=== PATIENT | female | born 1955 | race Caucasian/White ===

== ENCOUNTER 2019-12-11 12:40 | Emergency (ER) | payer BC, SELFPAY ==
[2019-12-11 12:40] VITALS: BP 200/119; PULSE 89; RESP 16; TEMP 36.4; O2SAT 98; BMI 37.8
--- NOTE | 2019-12-11 13:03 | EKG12_ITS ---
Test Reason : ABNLPAIN Blood Pressure : / mmHG Vent. Rate : 080 BPM Atrial Rate : 080 BPM P-R Int : 142 ms QRS Dur : 084 ms QT Int : 366 ms P-R-T Axes : 060 -15 037 degrees QTc Int : 422 ms Sinus rhythm with marked sinus arrhythmia Otherwise normal ECG Confirmed by MERY JOHNSON ([id number]), development editor JONAH VASQUES ([id number]) on 12/16/2019 1:22:41 PM Referred By: SHELL Confirmed By:MERY JOHNSON
--- NOTE | 2019-12-11 13:04 | CT_ITS ---
STUDY: CT ABDOMEN AND PELVIS WITHOUT CONTRAST REASON FOR EXAM: Female, 64 years old. LT FLANK PAIN. No hx cancer,diabetes or HTN RADIATION DOSAGE (If Supplied By Facility): CTDIvol = ( 19.40 ) mGy, DLP = ( 950.08 ) mGycm TECHNIQUE: Transaxial images were obtained from the dome of the diaphragm to the symphysis pubis without oral contrast, and without intravenous contrast. Sagittal and coronal images were reconstructed. Individualized dose optimization techniques were used for this CT. COMPARISON: None. FINDINGS: Minimal increased linear markings in the medial aspect of the right middle lobe as well as the lingular segment of the left upper lobe suggestive of mild scarring. The visualized portions of the heart are within normal limits. Normal liver. Normal gallbladder and extrahepatic biliary system. Normal spleen. Normal pancreas. Normal bilateral adrenal glands. Normal right kidney. There is engorgement of the left kidney with a mild degree of left perinephric stranding. Mild degree of left hydronephrosis and left hydroureter due to a 3 mm calculus at the left ureteropelvic junction as it enters the urinary bladder. There is a small hiatal hernia. Normal small intestine. There are multiple colonic diverticula consistent with diverticulosis. The appendix is visualized and appears normal. There is diffuse atherosclerotic calcification of the abdominal aorta, without a demonstrated aneurysm. Normal inferior vena cava. Normal retroperitoneum. Normal urinary bladder. Normal abdominal wall. There are degenerative changes of the visualized lumbar spine. CT/Abdomen/Pelvis without Cont IMPRESSION: Mild left hydronephrosis nodule or due to a 3 mm calculus at the left ureterovesical junction as it enters the urinary bladder. Left perinephric and periureteric stranding. Electronically Signed: Chandu Salinas, at 14:32 EDT , Service support ,
--- NOTE | 2019-12-11 13:05 | ED.DCSUM_ITS ---
- ER Visit Summary Date of Service: 12/11/19 Chief Complaint: Flank pain and a secondary complaint of chest pain History of Present Illness: The patient is a 64 F history of high cholesterol, back pain and rosacea. Patient states that today around 1030 had sudden onset left flank pain associated with nausea and diaphoresis. She is never had a kidney stone before. She did not vomit. She denies any dysuria or hematuria. She is never had pain like this before. She also states recently last several months she has had intermittent midsternal chest pain. At times associated with exertion. She had a cardiac work-up 10 years ago which had a negative stress test at that time. She does occasionally smoke about 2 cigarettes a day. She has no known cardiac history. She is never had a DVT or PE. Currently she is not having chest pain. Physical Examination: Older female no acute distress vital signs stable afebrile. Initial blood pressure elevated 200/119. Pulse ox 98% on room air no signs of hypoxia. H EENT exam unremarkable. Neck nontender. Lungs clear to auscultation bilaterally. Heart regular rhythm no murmur. Abdomen soft nontender. Normal bowel sounds no peritoneal signs. Extremities moves all 4. Calves are nontender without edema or cords. Neurologically she is awake alert with no focal motor deficits. Chest wall is nontender. Test Results: Portable 1 view chest no acute abnormality. CT flank study without contrast shows a 3 mm calculus with hydroureter and stranding. EKG normal sinus rhythm rate of 80 with no acute signs of AL or ischemia. CBC normal white count 8. Hemoglobin 13. Chemistries normal normal creatinine gap. UA normal no blood or infection. Troponin normal at less than 0.015 Emergency Department Course and Treatment: Patient's left flank pain sound like possibly a kidney stone. She will receive screening labs, urinalysis and a CAT scan of the abdomen pelvis without contrast. Chest pain she will undergo cardiac work-up for she. Exam currently is benign. There is no reproducible abdominal or chest pain. [facility] patient is doing well at 1455. She will be treated with morphine and Zofran for her flank pain and kidney stone. She will be discharged home with [place] for pain. Strainer for urine. Outpatient follow-up. I did speak to her primary care physician Dr. Gudino about getting her set up as soon as possible for an outpatient stress test. Patient and I discussed admission for this and she preferred not to stay due to the current pandemic. Treatment Plan: Work-up for pain. Strain urine. Follow-up with her PCP for an outpatient stress test. Aspirin daily. Return if worse pain. Disposition: discharge Impression: Acute left flank pain secondary to a 3 mm left UVJ kidney stone Acute chest pain of uncertain etiology This note was generated with [employer] dictation software. It may contain incorrect words, spelling, and punctuation that were not noted in review of the chart prior to signing ED Disposition - Plan for ED Patient: Referrals: Rene Gudino MD [Primary Care Provider] -
[2019-12-11 13:34] VITALS: O2SAT 98
[2019-12-11 13:36] LABS: Absolute Neutrophil Count 7.3 X10^3/uL (2.0-7.7); Basophil# 0.02 X10^3/uL; Basophil% 0.2 % (0-1); Eosinophil# 0.03 X10^3/uL; Eosinophils% 0.3 % (0-5); Hematocrit 41.7 % (37-47); Hemoglobin 13.9 g/dL (12.0-15.0); Lymphocyte % 11.4 % (19-41); Mean Corp Hgb Conc 33.3 g/dL (32-36); Mean Corpuscular Hgb 29.3 pg (27.0-32.0); Mean Corpuscular Volume 87.8 fL (81-99); Mean Platelet Vol. 11.1 fl (6.2-12.0); Monocyte# 0.47 X10^3/uL; Monocyte% 5.3 % (0-10); NRBC Flagged by Analyzer 0 % (0-5); Neutrophil # 7.27 X10^3/uL (2.7-7.7); Neutrophil % 82.7 % (47-70); Platelet Count 178 K/mm3 (150-450); RBC Distribution Width CV 12.7 % (11.6-14.6); RBC Distribution Width SD 41.1 fl (35.1-43.9); Red Blood Count 4.75 M/mm3 (4.2-5.4); White Blood Count 8.8 K/mm3 (4.4-11.0)
[2019-12-11 13:54] LABS: Anion Gap 5 (5-15); BUN 21 mg/dL (7-18); BUN/Creat Ratio 21.7 RATIO (10-20); Chloride 107 mmol/L (98-107); Creatinine, Serum 0.97 mg/dL (0.55-1.02); EST Glomerular Filtration Rate 62 mL/min (>60); Est Glom Filt Rate - Afr Amer 75 mL/min (>60); Estimated Creatinine Clearance 51.26 ml/min; Glucose 96 mg/dL (74-106); Potassium 4.4 mmol/L (3.5-5.1); Sodium Level 140 mmol/L (136-145)
[2019-12-11 13:58] LABS: Bacteria 0 SEEN /hpf (None Seen); Mucous, Urine 0 SEEN /hpf (<or=2+)
--- NOTE | 2019-12-11 14:00 | RAD_ITS ---
STUDY: X-RAY CHEST REASON FOR EXAM: Female, 64 years old. LEFT SIDED ABD AND FLANK PAIN, NAUSEA -- LATER STATES SHE HAS HAD INTERMITTENT CHEST PAIN, NONE TODAY- MAY BE ANXIETY. TECHNIQUE: Single AP portable view of the chest. COMPARISON: None. FINDINGS: The lungs are clear and expanded. There is no demonstrated pleural abnormality. Normal size heart. Normal mediastinum and quinn. Normal visualized pulmonary arteries. There is atherosclerotic tortuosity of the aortic arch and descending thoracic aorta. There are mild degenerative changes of the visualized thoracic spine. Normal visualized ribs, clavicles, and shoulders. There is no demonstrated abnormality of the visualized soft tissue structures of the upper abdomen. RAD/Chest 1 View (Portable) IMPRESSION: No acute abnormality is seen. Electronically Signed: Chandu Salinas, at 14:14 EDT , Service support ,
[2019-12-11 14:01] LABS: Color, Urine Yellow (Yellow); Glucose, Dipstick Normal (Normal); Ketone-Dipstick Negative (Negative); Leukocyte Esterase-Dipstick 25 /ul (Negative); Nitrite-Dipstick Negative (Negative); Occult Blood-Urine Negative /ul (Negative); Protein-Dipstick 15 mg/dl (Negative); Specific Gravity, Urine 1.025 (1.002-1.030); Urine Bilirubin Dipstick Negative (Negative); Urine Clarity Clear (Clear); Urine Urobilinogen Normal (Normal)
[2019-12-11 14:08] LABS: Red Blood Cells-Urine 0-5 SEEN /hpf (0-5); Squamous Epithelial Cells - UA 0-5 SEEN /hpf (5-10); White Blood Cells 0-5 SEEN /hpf (0-5)
[2019-12-11] MEDS: Ondansetron 4 MG/2 ML Vial IV (15:06)
[2019-12-11] MEDS: morphine 8 MG/ML Syringe 6 MG IV (15:06)
--- NOTE | 2019-12-11 15:07 | ED.DEP ---
ED Disposition - Plan for ED Patient: Disposition: Home or Assisted Living Instructions: ED Renal Stone w Colic, ED Chest Pain Atypical Unkn Cause Prescriptions: Hydrocodone/Acetaminophen [[place] 10-325 Tablet] 1 ea PO Q4H PRN PRN #14 tab PRN Reason: Pain Or Fever Prescription Printed Referrals: Rene Gudino MD [Primary Care Provider] - 1 Day Additional Instructions: You have a kidney stone the left is 3 mm and should pass. Strain your urine for the stone. [place] for pain for the kidney stone. Your chest pain work-up was negative. However you need outpatient stress test. I spoke your primary care physician Dr. Gudino. And if you call his office they will set you up for an outpatient stress test. Return emergency department if you are feeling worse especially if you have worsening chest pain. No heavy exertion. Daily aspirin.
[2019-12-11 15:18] VITALS: BP 151/97; PULSE 89; RESP 16; O2SAT 99
[2019-12-11 15:50] VITALS: BP 146/77; PULSE 96; RESP 15; O2SAT 97
== END 2019-12-11 15:52 | disposition home or self-care (01) ==
PROVIDERS: Emergency Provider Emergency Medicine; PCP Family Medicine
DX: N20.0 Calculus of kidney (principal); R07.89 Other chest pain; F17.210 Nicotine dependence, cigarettes, uncomplicated; E78.00 Pure hypercholesterolemia, unspecified
CPT/HCPCS: 71045; 74176; 80048; 81001; 84484; 85025; 93005; 96374; 96375; 99285; A4216; J2405

== ENCOUNTER 2024-02-15 15:01 | Emergency (ER) | payer MEDICARE, SELFPAY ==
[2024-02-15 15:01] VITALS: BP 152/65; PULSE 101; RESP 22; TEMP 36.7; O2SAT 96; BMI 34.7
--- NOTE | 2024-02-15 15:19 | CT_ITS ---
STUDY: CT ABDOMEN AND PELVIS WITHOUT CONTRAST REASON FOR EXAM: Female, 68 years old. Kidney stone (right) RADIATION DOSAGE (If Supplied By Facility): CTDIvol = ( 19.22 ) mGy, DLP = ( 931.39 ) mGycm TECHNIQUE: Transaxial images were obtained from the dome of the diaphragm to the symphysis pubis without oral contrast, and without intravenous contrast. Sagittal and coronal images were reconstructed. Individualized dose optimization techniques were used for this CT. COMPARISON: Comparison is made with prior study December 11, 2019. FINDINGS: Stable minimal scarring in the anteromedial aspect of the right lower lobe and lingular segment of the left upper lobe. The visualized portions of the heart are within normal limits. Normal liver. Normal gallbladder and extrahepatic biliary system. Normal spleen. Normal pancreas. Normal bilateral adrenal glands. Normal right kidney. Normal left kidney. Normal visualized stomach. Normal small intestine. There are scattered colonic diverticula consistent with diverticulosis. The appendix is visualized and appears normal. There is diffuse atherosclerotic calcification of the abdominal aorta, without a demonstrated aneurysm. Normal inferior vena cava. Normal retroperitoneum. Normal urinary bladder. Small bilateral inguinal areas containing fat. Normal osseous structures. CT/Abdomen/Pelvis without Cont IMPRESSION: No evidence of obstructive uropathy at this time. Electronically Signed: Chandu Salinas MD at 15:51 EDT ,
--- NOTE | 2024-02-15 15:20 | EX.ED.DYSGE1 ---
HPI History of Present Illness Chief Complaint: Flank Pain Informant: patient Narrative Narrative: 68-year-old female presenting to the emergency room for pleurisy and possible kidney stone. Patient states that last evening she began to have a period like cramping in the right lower quadrant followed by urinary frequency during the night and some blood in the urine. She notes some discomfort radiating to the right flank and wonders if she has a kidney stone again. Patient also notes that she has had a cough rhinorrhea. At the end of December she was placed on doxycycline and then later Augmentin and Medrol and most recently azithromycin cefpodoxime and prednisone taper approximately 1 week ago. She states she continues to have cough and now has pain with her ribs and states this feels like pleurisy which she has had before. Pain is worse with sneezing and coughing movement. No prior DVT or PE risk factors or history of. No hemoptysis. She quit smoking 1 month ago. She has a butyryl MDI and also now has a nebulizer that she was prescribed for this. PFSH [facility] Home Medications ?Medication ?Instructions ?Recorded ?Last Taken ?Type doxycycline monohydrate 100 mg 100 mg PO DAILY 05/06/16 Unknown History capsule rosuvastatin 10 mg tablet 10 mg PO DAILY 05/06/16 Unknown History hydrocodone 10 mg-acetaminophen 1 ea PO Q4H PRN PRN Pain Or Fever 12/11/19 Unknown Rx 325 mg tablet #14 tabs oxycodone-acetaminophen 5 mg-325 1 tab PO Q6H PRN PRN Pain 3 days 02/15/24 Unknown Rx mg tablet #12 TABLETS phenazopyridine 200 mg tablet 200 mg PO TID PRN pain #10 tabs 02/15/24 Unknown Rx (Pyridium) sulfamethoxazole 800 1 tab PO BID #14 TABLETS 02/15/24 Unknown Rx mg-trimethoprim 160 mg tablet Allergy/AdvReac Type Severity Reaction Status Date / Time No Known Allergies Allergy Verified 02/15/24 15:02 Social History (Updated 02/15/24 @ 15:[address] Aquiles Dior, DO) Smoking Status: Former smoker EXAM Physical Exam Const Vital Signs: 02/15/24 15:01 02/15/24 17:01 Temperature 98.1 F Temperature Source Temporal Pulse Rate 101 H 98 Respiratory Rate 22 H 16 Blood Pressure 152/65 H 148/69 H Blood Pressure Mean 94 95 Pulse Ox 96 99 Oxygen Delivery Method Room Air Room Air Positive well nourished and well developed General Appearance ED: well developed HEENT Reports normocephalic, head/scalp atraumatic and moist mucous membranes Eyes PERRL and EOMs intact bilaterally Neck no lymphadenopathy, supple and no JVD Chest Wall Chest Narrative: TTP lower mid-axillary ribs bilateral Resp normal respiratory effort Resp Narrative: moist cough Auscultation: rhonchi and wheezes expiratory wheezes (few) Cardio regular rate, regular rhythm and no murmurs GI normal to inspection, nondistended, normoactive bowel sounds and non-tender Palpation: soft Back/Spine no CVA tenderness and normal ROM Extremity normal to inspection General Extremety ED: Negative for edema General Extremity: Negative for edema Neuro oriented x3 and CN's II-XII intact bilaterally Sensorium / Orientation: alert Motor Exam: strength 5/5 throughout Psych mental status grossly normal Mood & Affect: Negative for depressed or tearful Skin no rashes or lesions noted and no wounds MDM MDM MDM Narrative Medical decision making narrative: Differential diagnosis includes UTI ureterolithiasis colitis hemorrhagic cystitis pneumonia pleural effusion rib fracture pleurisy bronchitis bronchospasm count is elevated 17.6. Patient has recently been on steroids which may be contributing to this. BUN 22 creatinine 1.03 normal electrolytes glucose [address] of the abdomen pelvis was obtained which does not demonstrate any obvious ureterolithiasis or masses. My independent interpretation of the chest x-ray is no acute process. Urinalysis is nitrate positive turbid in clarity greater than 100 white cells 25-50 red cells positive leukocyte Estrace 0 bacteria seen. Culture sent. Patient will be started on Bactrim. She does not feel the prednisone is helping and this is her second round of steroids. Would have her use her albuterol nebulizer every 4 hours. She has not been doing this because the pain when she coughs. I can write for some pain medicine. I believe the chest pain is related to chest wall strain due to coughing. It is bilateral across the lower ribs worse with movement deep breathing and coughing. No recommend the patient follow-up with her primary care doctor in 1 week History & Record Review Discussion w/independent historian: Patient and Significant other Lab Data Attestation: I reviewed the patient's lab results. Labs: Laboratory Results - last 24 hr 02/15/24 02/15/24 15:20 17:03 WBC 17.6 H RBC 4.79 Hgb 14.1 Hct 42.3 MCV 88.3 MCH 29.4 MCHC 33.3 RDW Std Deviation 42.5 RDW Coeff of Elvia 13.2 Plt Count 218 MPV 10.3 Immature Gran % (Auto) 0.500 Neut % (Auto) 88.6 H Lymph % (Auto) 5.3 L [place] % (Auto) 5.3 Eos % (Auto) 0.1 Baso % (Auto) 0.2 Absolute Neuts (auto) 15.6 H Absolute Lymphs (auto) 0.94 Nucleated RBC % 0 Sodium 139 Potassium 4.0 Chloride 106 Carbon Dioxide 27.0 Anion Gap 6 BUN 22 H Creatinine 1.03 H Estim Creat Clear Calc 60.31 Est GFR (MDRD) Af Amer 69 Est GFR (MDRD) Non-Af 57 L BUN/Creatinine Ratio 21.4 H Glucose 135 H Calcium 9.4 Total Bilirubin 0.60 AST 23 ALT 38 Alkaline Phosphatase 83 Total Protein 7.2 Albumin 3.5 Globulin 3.7 Albumin/Globulin Ratio 0.9 Urine Color Berna Urine Clarity Turbid Urine pH 6.0 Ur Specific [place] 1.020 Urine Protein 100 H Urine Glucose (UA) Normal Urine Ketones Negative Urine Occult Blood 250 H Urine Nitrite Positive H Urine Bilirubin 3 H Urine Urobilinogen 8 H Ur Leukocyte Esterase 500 H Urine RBC 25-50 SEEN Urine WBC >100 SEEN Ur Squamous Epith Cells 0-5 SEEN Urine Bacteria 0 SEEN Urine Mucus 0 SEEN Radiography Diagnostic Testing: Clinical Impression(s) from Imaging Studies Abdomen/Pelvis CT 02/15/24 15:19 IMPRESSION: No evidence of obstructive uropathy at this time. Electronically Signed: Chandu Salinas MD at 15:51 EDT , Chest X-Ray 02/15/24 15:35 IMPRESSION: Minimal increased markings at the left lung base suggestive of linear atelectasis. Electronically Signed: Chandu Salinas MD at 15:46 EDT , Discharge Plan Triage Chief Complaint: Flank Pain ED Provider: Aquiles Dior Dx/Rx/DC Orders Clinical Impression: Acute cystitis, Bronchitis with bronchospasm, Acute chest wall pain Instructions: ED Bronchitis with Wheezing (Adult), ED Cystitis Female Adult, ED Chest Wall Strain Prescriptions: New phenazopyridine [Pyridium] 200 mg tablet 200 mg PO TID PRN (Reason: pain) Qty: 10 0RF sulfamethoxazole-trimethoprim 800-160 mg tablet 1 tab PO BID Qty: 14 0RF oxycodone-acetaminophen 5-325 mg tablet 1 tab PO Q6H PRN PRN (Reason: Pain) 3 Days Qty: 12 0RF No Action doxycycline monohydrate 100 MG capsule 100 mg PO DAILY rosuvastatin 10 MG tablet 10 mg PO DAILY hydrocodone-acetaminophen 1 EACH tablet 1 ea PO Q4H PRN PRN (Reason: Pain Or Fever) Qty: 14 0RF Primary Care Provider: Rene Gudino Referrals: Rene Gudino MD [Primary Care Provider] - 1 Week Activity Restrictions/Additional Instructions: Please use your albuterol nebulizer every 4 hours while awake I wrote for Bactrim for the urine. A urine culture will be performed. If antibiotic needs to be changed we will advise via phone call. Print Language: Togolese Disposition Disposition: Home, Self Care
[2024-02-15 15:33] LABS: Absolute Lymphocyte Count 0.94 X10^3/uL (0.83-4.51); Absolute Neutrophil Count 15.6 X10^3/uL (2.0-7.7); Basophil# 0.03 X10^3/uL; Basophil% 0.2 % (0-1); Eosinophil# 0.01 X10^3/uL; Eosinophils% 0.1 % (0-5); Hematocrit 42.3 % (37-47); Hemoglobin 14.1 g/dL (12.0-15.0); Lymphocyte # 0.94 X10^3/ul (0.83-4.51); Lymphocyte % 5.3 % (19-41); Mean Corp Hgb Conc 33.3 g/dL (32-36); Mean Corpuscular Hgb 29.4 pg (27.0-32.0); Mean Corpuscular Volume 88.3 fL (81-99); Mean Platelet Vol. 10.3 fl (6.2-12.0); Monocyte# 0.93 X10^3/uL; Monocyte% 5.3 % (0-10); NRBC Flagged by Analyzer 0 % (0-5); Neutrophil # 15.61 X10^3/uL (2.7-7.7); Neutrophil % 88.6 % (47-70); Platelet Count 218 K/mm3 (150-450); RBC Distribution Width CV 13.2 % (11.6-14.6); RBC Distribution Width SD 42.5 fl (35.1-43.9); Red Blood Count 4.79 M/mm3 (4.2-5.4); White Blood Count 17.6 K/mm3 (4.4-11.0)
--- NOTE | 2024-02-15 15:35 | RAD_ITS ---
STUDY: X-RAY CHEST REASON FOR EXAM: Female, 68 years old. Cough TECHNIQUE: PA and lateral views of the chest. COMPARISON: Comparison is made with prior study dated December 11, 2019. FINDINGS: Minimal increased markings at the left lung base suggestive of underlying atelectasis. There is no demonstrated pleural abnormality. Normal size heart. Normal mediastinum and quinn. Normal visualized pulmonary arteries. Normal visualized aortic arch and descending thoracic aorta. There are degenerative changes of the visualized thoracic spine. Normal visualized ribs, clavicles, and shoulders. There is no demonstrated abnormality of the visualized soft tissue structures of the upper abdomen. RAD/Chest PA and Lateral IMPRESSION: Minimal increased markings at the left lung base suggestive of linear atelectasis. Electronically Signed: Chandu Salinas MD at 15:46 EDT ,
[2024-02-15 15:55] LABS: ALB/GLOB Ratio 0.9 RATIO (0.9-2.4); AST(SGOT) 23 U/L (15-37); Alanine Aminotransfer ALT/SGPT 38 U/L (13-56); Albumin, Serum 3.5 g/dL (3.2-5.0); Alkaline Phosphatase 83 U/L (45-117); Anion Gap 6 (5-15); BUN 22 mg/dL (7-18); BUN/Creat Ratio 21.4 RATIO (10-20); Calcium,Total 9.4 mg/dL (8.5-10.1); Chloride 106 mmol/L (98-107); Creatinine, Serum 1.03 mg/dL (0.55-1.02); EST Glomerular Filtration Rate 57 mL/min (>60); Est Glom Filt Rate - Afr Amer 69 mL/min (>60); Estimated Creatinine Clearance 60.31 ml/min; Globulin 3.7 g/dL (2.2-4.2); Glucose 135 mg/dL (74-106); Protein, Total 7.2 g/dL (6.4-8.2); Sodium Level 139 mmol/L (136-145)
[2024-02-15] MEDS: 0.9% Normal Saline (1000mL) 1,000 ML 999 ML IV (16:29)
[2024-02-15 17:01] VITALS: BP 148/69; PULSE 98; RESP 16; O2SAT 99
[2024-02-15 17:28] LABS: Bacteria 0 SEEN /hpf (None Seen); Mucous, Urine 0 SEEN /hpf (<or=2+)
[2024-02-15 17:30] LABS: Color, Urine Amber (Yellow); Glucose, Dipstick Normal (Normal); Ketone-Dipstick Negative (Negative); Leukocyte Esterase-Dipstick 500 /ul (Negative); Nitrite-Dipstick Positive (Negative); Occult Blood-Urine 250 /ul (Negative); Protein-Dipstick 100 mg/dl (Negative); Urine Clarity Turbid (Clear); Urine Urobilinogen 8 mg/dl (Normal)
[2024-02-15 17:39] LABS: Urine Bilirubin Dipstick 3 mg/dL (Negative)
[2024-02-15 17:41] LABS: Red Blood Cells-Urine 25-50 SEEN /hpf (0-5); Squamous Epithelial Cells - UA 0-5 SEEN /hpf (5-10); White Blood Cells >100 SEEN /hpf (0-5)
[2024-02-15 18:15] VITALS: PULSE 86; RESP 18; O2SAT 95
== END 2024-02-15 18:17 | disposition home or self-care (01) ==
PROVIDERS: Emergency Provider Emergency Medicine; PCP Family Medicine; Visit Provider Emergency Medicine
DX: N30.00 Acute cystitis without hematuria (principal); J40 Bronchitis, not specified as acute or chronic; R07.89 Other chest pain; Z87.891 Personal history of nicotine dependence
CPT/HCPCS: 71046; 74176; 80053; 81001; 85025; 87077; 87086; 87088; 87186; 99283; J7030

== ENCOUNTER → 2024-11-28 | Outpatient (CLI) | payer MEDICARE, SELFPAY | END | disposition home or self-care (01) | PROVIDERS: PCP Family Medicine; Referring Provider Obstetrics & Gynecology; Visit Provider Obstetrics & Gynecology | DX: G47.10 Hypersomnia, unspecified (principal); R03.0 Elevated blood-pressure reading, without diagnosis of hypertension; E78.2 Mixed hyperlipidemia; R53.81 Other malaise; R06.89 Other abnormalities of breathing; R06.83 Snoring; E66.812 Obesity, class 2 | CPT/HCPCS: 95810 ==